=== PATIENT | female | born 1960 | race Caucasian/White ===

== ENCOUNTER 2021-12-25 13:38 | Outpatient (CLI) | payer BC, SELFPAY ==
[2021-12-25 18:23] LABS: TSH With Reflex to FT4* 0.243 uIU/mL (0.270-4.200)
[2021-12-27 14:39] LABS: Free T4 Free Thyroxine* 1.92 ng/dL (0.70-1.85)
== END 2021-12-25 13:39 | disposition home or self-care (01) ==
LOC: LONREF 13:39
PROVIDERS: PCP Family Medicine; Visit Provider Family Medicine
DX: E03.9 Hypothyroidism, unspecified (principal)
CPT/HCPCS: 84439; 84443

== ENCOUNTER 2022-02-11 07:03 | Outpatient (CLI) | payer BC, SELFPAY ==
[2022-02-11 07:31] LABS: Estimated Glomerular Filt Rate 63 ml/min
--- NOTE | 2022-02-11 08:00 | CRLHL7_ITS ---
For Patients: As a result of the Century Cures Act, medical imaging exams and procedure reports are released immediately into your electronic medical record. You may view this report before your referring provider. If you have questions, please contact your health care provider. Indication: Right lower quadrant pain Technique: Postcontrast CT abdomen and pelvis. 70 cc Isovue 370 intravenous contrast. Please note that all CT scans at this facility use dose modulation, iterative reconstruction, and/or weight-based dosing when appropriate to reduce radiation dose to as low as reasonably achievable. Comparison: None Findings: Lung bases are clear. No free air is present. Normal liver, gallbladder, spleen, pancreas, adrenal glands, kidneys and ureters. Vascular calcifications without aneurysm. Normal bladder and uterus. No adnexal mass. No bowel obstruction or free air. No free fluid or abscess. Normal appendix. Excess stool within right colon particularly in the cecum. Degenerative disc disease L4-5 and L5-S1. Impression: Normal appendix. Excess stool in the right colon compatible with constipation. No bowel obstruction or inflammatory change. Please note that all CT scans at this facility use dose modulation, iterative reconstruction, and/or weight-based dosing when appropriate to reduce radiation dose to as low as reasonably achievable. Dictated by Hollis Woodson MD @ 02/11/2022 9:23:15 AM (Electronically Signed)
== END 2022-02-11 07:04 | disposition home or self-care (01) ==
LOC: CT 07:03
PROVIDERS: PCP Family Medicine; Visit Provider Nurse Practitioner Family
DX: R10.31 Right lower quadrant pain (principal)
CPT/HCPCS: 36415; 74177; 82565; Q9967

== ENCOUNTER 2022-02-24 07:07 | Outpatient (CLI) | payer BC, SELFPAY ==
--- NOTE | 2022-02-24 07:15 | CRLHL7_ITS ---
For Patients: As a result of the Cures Act, medical imaging exams and procedure reports are released immediately into your electronic medical record. You may view this report before your referring provider. If you have questions, please contact your health care provider. INDICATION: Headaches. TECHNIQUE: Sagittal and axial T1, axial FLAIR, T2, diffusion-weighted and gadolinium enhanced sagittal axial and coronal T1 weighted images of the brain. FINDINGS: The lateral 3rd and 4th ventricles are normal in size and shape no evidence of acute ischemic infarction. No areas of diffusion restriction. No evidence of intracranial hemorrhage. There are scattered foci of FLAIR/T2 hyperintensity within the supratentorial white matter that can be seen with migraine or mild chronic microvascular ischemia but are nonspecific findings. There are no enhancing intra-axial or extra-axial lesions. The brainstem and cerebellum appear normal. The orbits sella turcica paranasal sinuses and skullbase are unremarkable. IMPRESSION: 1. No evidence of acute infarction, intracranial hemorrhage, mass or enhancing lesion. 2. Several small foci of nonspecific FLAIR/T2 hyperintensity within the supratentorial white matter consistent with mild chronic microvascular ischemia or changes related to migraine. Dictated by Alirio Donald MD @ 02/24/2022 1:15:45 PM (Electronically Signed)
== END 2022-02-24 07:08 | disposition home or self-care (01) ==
PROVIDERS: PCP Family Medicine; Visit Provider Otolaryngology
DX: R51.9 Headache, unspecified (principal); I67.82 Cerebral ischemia
CPT/HCPCS: 70553; A9575

== ENCOUNTER 2022-02-27 09:03 | Outpatient (CLI) | payer BC, SELFPAY ==
--- NOTE | 2022-02-27 09:15 | CRLHL7_ITS ---
For Patients: As a result of the Century Cures Act, medical imaging exams and procedure reports are released immediately into your electronic medical record. You may view this report before your referring provider. If you have questions, please contact your health care provider. ESOPHAGRAM CLINICAL HISTORY: Dysphagia. FINDINGS: The patient was given thin and thick barium and effervescent granules which were followed fluoroscopically. Hypopharynx appears clear. The study is suboptimal with poor distention of the esophagus. There is no hiatal hernia. No mass lesion. No fixed areas of stricture. IMPRESSION: Unremarkable, slightly limited esophagram. Total fluoro time is 0.6 seconds. Paula Ragsdale M.D. Diagnostic/Breast Radiologist [email or web address] DWIGHTP/jj jj/Dictated by: Paula Ragsdale MD @ 02/27/2022 11:20:00 AM (Electronically Signed)
== END 2022-02-27 09:04 | disposition home or self-care (01) ==
LOC: RAD 09:04
PROVIDERS: PCP Nurse Practitioner Family; Visit Provider Otolaryngology
DX: R13.10 Dysphagia, unspecified (principal)
CPT/HCPCS: 74221

== ENCOUNTER 2022-03-10 08:55 | Outpatient (CLI) | payer BC, SELFPAY ==
--- NOTE | 2022-03-10 09:00 | CRLHL7_ITS ---
For Patients: As a result of the Century Cures Act, medical imaging exams and procedure reports are released immediately into your electronic medical record. You may view this report before your referring provider. If you have questions, please contact your health care provider. INDICATION: Sensation of foreign body in throat, pain TECHNIQUE: CT of the neck with 70 ml iodinated contrast agent. Coronal and sagittal reconstructions are included. COMPARISON: Fluoroscopic esophagram 02/27/2022 FINDINGS: No focal mass, suspicious enhancing lesion, or abnormal fluid collection within the suprahyoid or infrahyoid neck. No pathologic lymphadenopathy by CT size criteria. The oral cavity, and pharyngeal mucosal spaces have a normal appearance. The laryngeal structures appear within normal limits. Grossly patent aerodigestive tract. Major salivary glands appear symmetric and unremarkable. Thyroid gland appears diminutive/poorly visualized. Vascular structures of the neck demonstrate normal contrast opacification. However, included views of the intracranial structures demonstrate possible 6 mm aneurysm at the left MCA bifurcation (series 5/). Bilateral lens implants. Clear paranasal sinuses and mastoid air cells. Cervical spondylosis, with degenerative bony ankylosis across the left C2-3 facet joint. No evidence of critical spinal canal stenosis. Multilevel foraminal narrowing, moderate to severe on the right at C3-4, left at C4-5, right at C5-6 and C6-7, and less severe elsewhere. Centrilobular and paraseptal emphysematous changes with biapical pleural parenchymal thickening. IMPRESSION: 1. No focal neck mass or suspicious enhancement. Grossly patent aerodigestive tract. No pathologic lymphadenopathy by CT size criteria. 2. 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 Consider dedicated CTA or MRA head for further characterization. Please note that all CT scans at this facility use dose modulation, iterative reconstruction, and/or weight-based dosing when appropriate to reduce radiation dose to as low as reasonably achievable. Dictated by Ynes Mclaughlin MD @ 03/10/2022 10:40:55 AM (Electronically Signed)
== END 2022-03-10 08:56 | disposition home or self-care (01) ==
LOC: CT 08:55
PROVIDERS: PCP Nurse Practitioner Family; Visit Provider Otolaryngology
DX: R13.10 Dysphagia, unspecified (principal)
CPT/HCPCS: 70491; Q9967

== ENCOUNTER 2022-03-24 07:00 | Outpatient (CLI) | payer BC, SELFPAY ==
--- NOTE | 2022-03-24 07:15 | CRLHL7_ITS ---
For Patients: As a result of the Century Cures Act, medical imaging exams and procedure reports are released immediately into your electronic medical record. You may view this report before your referring provider. If you have questions, please contact your health care provider. Indication: Headache, rule out aneurysm. Technique: 3D [id number] MR angiogram of the [id number] with 3-dimensional MIP projections were submitted. DWI and ADC map were also obtained. Comparison: CT neck 03/10/2022 Findings: The visualized first and second order intracranial vessels are unremarkable. No occlusion/filling defect or acquired arterial stenosis identified. 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 No vascular malformation seen. No evidence of diffusion restriction to suggest acute ischemia. Impression: 1. 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 Outpatient consultation with the neurointerventional radiology service can be arranged by calling [phone]. 2. No evidence of proximal arterial occlusion, aneurysm, dissection, or vascular malformation. Dictated by Hollis Montiel MD @ 03/24/2022 8:31:52 AM (Electronically Signed)
== END 2022-03-24 07:01 | disposition home or self-care (01) ==
LOC: MRI 07:00
PROVIDERS: PCP Nurse Practitioner Family; Visit Provider Otolaryngology
DX: R51.9 Headache, unspecified (principal); Q28.2 Arteriovenous malformation of cerebral vessels
CPT/HCPCS: 70544

== ENCOUNTER 2022-03-31 08:38 | Outpatient (CLI) | payer BC, SELFPAY ==
--- NOTE | 2022-03-31 09:00 | CRLHL7_ITS ---
For Patients: As a result of the Century Cures Act, medical imaging exams and procedure reports are released immediately into your electronic medical record. You may view this report before your referring provider. If you have questions, please contact your health care provider. CT ANGIOGRAM HEAD DATE: 03/31/2022 CLINICAL HISTORY: Patient with brain aneurysm. TECHNIQUE: Standard helical CT image acquisition through the intracranial circulation following intravenous administration of contrast material with bolus tracking. Multiplanar reconstructed images were performed and interpreted. COMPARISON: MRA 03/24/2022. FINDINGS: There is a 7.5mm left middle cerebral artery bifurcation aneurysm. There is no large vessel occlusion. The right internal carotid artery is normal. The right middle cerebral artery and its branches are normal. The right anterior cerebral artery and its branches are normal. The left internal carotid artery is normal. The left anterior cerebral artery and its branches are normal. The anterior communicating artery is well visualized and appears normal. The right vertebral artery and PICA are normal. The left vertebral artery and PICA are normal. The vertebral arteries are codominant. The basilar artery is patent and appears normal. The right posterior cerebral artery is normal. The left posterior cerebral artery is normal. The visualized venous structures are patent. 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 Please note that all CT scans at this facility use dose modulation, iterative reconstruction, and/or weight-based dosing when appropriate to reduce radiation dose to as low as reasonably achievable. Dictated by: Tabatha Rodriguez MD @ 03/31/2022 11:14:47 (Electronically Signed)
[2022-03-31 09:09] LABS: Creatinine* 1.1 mg/dL (0.5-1.5); Estimated Glomerular Filt Rate 56 ml/min
[2022-03-31 18:19] LABS: Free T4 Free Thyroxine* 1.21 ng/dL (0.70-1.85)
[2022-04-03 16:17] LABS: Total T3 75 ng/dL (80-200)
== END 2022-03-31 08:39 | disposition home or self-care (01) ==
LOC: CT 08:39
PROVIDERS: Family Medicine; PCP Nurse Practitioner Family; Visit Provider Radiology Diagnostic Radiology
DX: I67.1 Cerebral aneurysm, nonruptured (principal); E03.9 Hypothyroidism, unspecified
CPT/HCPCS: 36415; 70460; 82565; 84439; 84443; 84480; Q9967

== ENCOUNTER 2022-04-22 09:00 | Outpatient (CLI) | payer BC, SELFPAY ==
--- NOTE | 2022-04-22 09:15 | CRLHL7_ITS ---
For Patients: As a result of the Century Cures Act, medical imaging exams and procedure reports are released immediately into your electronic medical record. You may view this report before your referring provider. If you have questions, please contact your health care provider. BILATERAL SCREENING MAMMOGRAM WITH COMPUTER-AIDED DETECTION AND TOMOSYNTHESIS TECHNIQUE: CC and MLO views were obtained. These mammographic images have been obtained using full-field digital technique. These mammographic images were interpreted with the benefit of computer-aided detection. Breast tomosynthesis was used in this interpretation. COMPARISON FILM: 04/24/20, 06/09/17, 06/11/10. FINDINGS: The breasts are heterogeneously dense, which may obscure small masses. IMPRESSION: There is no radiographic evidence for malignancy. ASSESSMENT: BI-RADS Category 1: Negative RECOMMENDATION: Routine screening mammogram in 1 year. A lay language report of this examination will be provided to the patient. HOLLIS MCDONALD M.D. Diagnostic Radiologist [email or web address] Transcribed: 3:[address]/Dictated by: Hollis Mcdonald MD @ 04/22/2022 12:46:00 PM (Electronically Signed)
== END 2022-04-22 09:01 | disposition home or self-care (01) ==
PROVIDERS: PCP Nurse Practitioner Family; Visit Provider Nurse Practitioner Family
DX: Z12.31 Encounter for screening mammogram for malignant neoplasm of breast (principal); R92.2 Inconclusive mammogram
CPT/HCPCS: 77063; 77067

== ENCOUNTER 2022-05-22 09:37 | Outpatient (CLI) | payer BC, SELFPAY ==
[2022-05-22 15:00] LABS: Chloride* 110 mmol/L (96-114); Sodium* 141 mmol/L (135-149)
[2022-05-22 15:01] LABS: Potassium* 4.5 mmol/L (3.6-5.1)
[2022-05-22 15:03] LABS: Creatinine* 0.9 mg/dL (0.5-1.5); Estimated Glomerular Filt Rate 72 ml/min
[2022-05-22 15:04] LABS: Blood Urea Nitrogen* 13 mg/dL (7-30); Calcium* 9.5 mg/dL (8.4-10.6); Carbon Dioxide* 23 mmol/L (20-32); Glucose* 97 mg/dL (60-115)
[2022-05-22 15:39] LABS: TSH With Reflex to FT4* 0.184 uIU/mL (0.270-4.200)
[2022-05-23 19:22] LABS: Total T3 191 ng/dL (80-200)
== END 2022-05-22 09:38 | disposition home or self-care (01) ==
PROVIDERS: PCP Nurse Practitioner Family; Visit Provider Nurse Practitioner Family
DX: Z01.818 Encounter for other preprocedural examination (principal); E05.00 Thyrotoxicosis with diffuse goiter without thyrotoxic crisis or storm; I10 Essential (primary) hypertension; E78.5 Hyperlipidemia, unspecified; E03.9 Hypothyroidism, unspecified
CPT/HCPCS: 80048; 84439; 84443; 84480

== ENCOUNTER 2022-06-05 15:46 | Outpatient (CLI) | payer BC, SELFPAY ==
[2022-06-05 17:57] LABS: SARS PCR* Negative SARS-CoV-2 (Negative)
== END 2022-06-05 15:47 | disposition home or self-care (01) ==
LOC: LONREF 15:47
PROVIDERS: PCP Nurse Practitioner Family; Visit Provider Nurse Practitioner Family
DX: Z01.818 Encounter for other preprocedural examination (principal)
CPT/HCPCS: 87635

== ENCOUNTER 2022-09-02 15:18 | Outpatient (CLI) | payer BC, SELFPAY | END 2022-09-02 15:19 | disposition home or self-care (01) | PROVIDERS: PCP Nurse Practitioner Family; Visit Provider Nurse Practitioner Family | DX: R53.83 Other fatigue (principal); I10 Essential (primary) hypertension; E03.9 Hypothyroidism, unspecified | CPT/HCPCS: 82728; 84443; 84480 ==

== ENCOUNTER 2022-09-09 10:05 | Outpatient (CLI) | payer BC, SELFPAY | END 2022-09-09 10:06 | disposition home or self-care (01) | LOC: NFLDREF 09-10 18:13 | PROVIDERS: PCP Nurse Practitioner Family; Referring Provider Nurse Practitioner Family; Visit Provider Nurse Practitioner Family | DX: E03.9 Hypothyroidism, unspecified (principal) | CPT/HCPCS: 84439 ==

== ENCOUNTER 2022-11-24 09:08 | Outpatient (CLI) | payer BC, SELFPAY | END 2022-11-24 09:09 | disposition home or self-care (01) | PROVIDERS: PCP Nurse Practitioner Family; Visit Provider Family Medicine | DX: I10 Essential (primary) hypertension (principal); E78.2 Mixed hyperlipidemia; E89.0 Postprocedural hypothyroidism | CPT/HCPCS: 80048 ==

== ENCOUNTER 2023-03-09 09:03 | Outpatient (CLI) | payer BC, SELFPAY | END 2023-03-09 09:04 | disposition home or self-care (01) | LOC: NFLDREF 03-10 16:43 | PROVIDERS: PCP Nurse Practitioner Family; Referring Provider Nurse Practitioner Family; Visit Provider Family Medicine | DX: R39.9 Unspecified symptoms and signs involving the genitourinary system (principal); M48.062 Spinal stenosis, lumbar region with neurogenic claudication; M54.10 Radiculopathy, site unspecified; H92.01 Otalgia, right ear; R39.11 Hesitancy of micturition | CPT/HCPCS: 87086 ==

== ENCOUNTER 2023-03-12 07:07 | Outpatient (CLI) | payer BC, SELFPAY ==
--- NOTE | 2023-03-12 07:15 | CRLHL7_ITS ---
For Patients: As a result of the Century Cures Act, medical imaging exams and procedure reports are released immediately into your electronic medical record. You may view this report before your referring provider. If you have questions, please contact your health care provider. INDICATION : Cervical radiculopathy. TECHNIQUE : Cervical spine MRI without contrast. The following sequences were obtained: Sagittal T1, T2 weighted and STIR sequences. Axial T2-weighted and gradient sequences. COMPARISON: COMPARISONCervical spine MRI from 02/25/2021. FINDINGS: Straightening of the typical cervical lordosis. No recent compression fracture or marrow replacing process. Posterior fossa structures are normal. Cervical cord signal is normal. No extraspinal soft tissue abnormalities. Discs/Endplates: At C6-7, moderately advanced disc height loss and disc desiccation. At C5-6, mild disc height loss and disc desiccation. Minimal disc degeneration elsewhere. Findings at individual levels as follows: Craniocervical junction: Alignment is maintained. C2-C3: High-grade left facet arthrosis with bony fusion along the facet joint. Mild left neural foraminal stenosis. No right neural foraminal stenosis or spinal canal stenosis. C3-C4: Shallow disc osteophyte complex, asymmetric to the right flexes the thecal sac and contributes to mild right-sided spinal canal stenosis. Contiguous right uncovertebral arthrosis combine with right facet arthrosis results in moderately advanced right neural foraminal stenosis with impingement of the exiting right C4 nerve root. Left uncovertebral and facet arthrosis contributes to mild left neural foraminal stenosis. C4-C5: Shallow disc osteophyte complex flattens the thecal sac without spinal canal stenosis. Bilateral uncovertebral arthrosis and high-grade left facet arthrosis with mild right and advanced left neural foraminal stenosis. Impingement of the exiting left C5 nerve root. C5-C6: A right central protrusion/osteophyte minimally flattens the right ventral cord with mild right-sided spinal canal stenosis. Bilateral uncovertebral and facet arthrosis contributes to mild left and moderately advanced right neural foraminal stenosis with impingement of the exiting right C6 nerve root. C6-C7: A right dorsal lateral disc osteophyte flattens the thecal sac and contributes to mild right-sided spinal canal stenosis. Bilateral uncovertebral and facet arthrosis contributes to moderate left and advanced right neural foraminal stenosis with impingement of the exiting right C7 nerve root. C7-T1: Trace anterolisthesis. Right-sided facet arthrosis. Mild right neural foraminal stenosis. No left neural foraminal stenosis or spinal canal stenosis. T1-2: No spinal canal or neural foraminal stenosis. IMPRESSION: 1. No significant progression of multilevel cervical spondylosis when compared to MRI from 02/25/2021. 2. High-grade neural foraminal stenosis at C3-4 on the right, C4-5 on the left, C5-6 on the right, and C6-7 on the right with impingement of exiting nerve roots at these levels. Mild to moderate neural foraminal stenosis elsewhere. 3. No high-grade spinal canal stenosis or significant extrinsic cord deformity at any cervical level. Cervical cord signal is normal. Dictated by Asael David MD @ 03/13/2023 1:31:35 PM (Electronically Signed)
== END 2023-03-12 07:08 | disposition home or self-care (01) ==
LOC: MRI 07:08
PROVIDERS: PCP Family Medicine; Visit Provider Physical Medicine & Rehabilitation Pain Medicine
DX: M54.12 Radiculopathy, cervical region (principal); M47.812 Spondylosis without myelopathy or radiculopathy, cervical region; M48.02 Spinal stenosis, cervical region
CPT/HCPCS: 72141

== ENCOUNTER 2024-02-23 08:26 | Outpatient (CLI) | payer BC, OTHER, SELFPAY ==
--- OUTSIDE RECORDS SUMMARY | 2024-02-23 08:32 | XMS_ITS | Referral Summary ---
Author Organization [facility] Address [facility] [place] [address] Care Team Providers Care Wrapper Leaf Inspector Name Role Phone Vj Dos Santos MD Unavailable [phone] Vj Dos Santos MD Primary Care Provider [phone] Allergies Active Allergy Reactions Criticality Noted Date Comments Hydrocodone-Acetaminoph en 08/27/2009 PN: LW Reaction: hallucinations Medications Medication Sig Dispensed Refills Start Date End Date Status mometasone-formoterol (DULERA) 100-5 MCG/ACT inhaler Inhale 2 puffs into the lungs daily Active tiotropium (SPIRIVA HANDIHALER) 18 MCG inhaled capsule Inhale 18 mcg into the lungs daily Active cholecalciferol (VITAMIN D3) 125 mcg (5000 units) capsule Take 125 mcg by mouth daily Active levothyroxine (SYNTHROID/LEVOTHROID) 112 MCG tabletIndications:Grav es disease,S/P total thyroidectomy Take 1 tablet (112 mcg) by mouth daily 30 tablet 1 05/30/2020 Active traMADol (ULTRAM) 50 MG tabletIndications:Grav es disease,S/P total thyroidectomy Take 1-2 tablets (50-100 mg) by mouth every 6 hours as needed for moderate pain 10 tablet 05/29/2020 Active calcium carbonate-vitamin D (OSCAL W/D) 500-200 MG-UNIT tabletIndications:Grav es disease,S/P total thyroidectomy Take 2 tablets by mouth 3 times daily (with meals) 90 tablet 05/29/2020 Active Active Problems Problem Noted Date Diagnosed Date Graves disease 05/02/2020 Overview: Added automatically from request for surgery [id number] Social History Tobacco Use Types Packs/Day Years Used Date Smoking Tobacco: Every Day Cigarettes Smokeless Tobacco: Never Tobacco Cessation:Counseling Given: Yes Alcohol Use Standard Drinks/Week Comments Yes 0 (1 standard drink = 0.6 oz pur e alcohol) very seldom Adolescent Education Answer Date Record ed Getting School Help Needed Not on file 02/22 Sex and Gender Information Value Date Recorded Sex Assigned at Not on file Gender Identity Not on file Sexual Orientation Not on file Last Filed Vital Signs Vital Sign Reading Time Taken Comments Blood Pressure 129/61 05/29/2020 7:42 AM [employer]CR[employer]E [employer] Pulse 59 05/29/2020 7:42 AM [employer] Temperature 35.9 ??C (96.6 ??F) 05/29/2020 7:42 AM CS T Respiratory Rate 16 05/29/2020 7:42 AM [employer] Oxygen Saturation 96% 05/29/2020 7:42 AM [employer]CR[employer] Inhaled Oxygen Concentration - - Weight 72.4 kg (159 lb 11.2 oz) 05/28/2020 8:31 AM [employer]CR[employer] Height 182.9 cm (6') 05/28/2020 8:31 AM [employer] Body Mass Index 21.66 05/28/2020 8:31 AM [employer]CR[employer] Plan of Treatment Not on file Advance Directives For more information, please contact: [phone] * Full Code (Latest Code Status on File) Date Activated Date Inactivated Comments 05/28/2020 5:12 PM 05/29/2020 12:51 PM All basic and advanced life-sustaining interventions are performed as appropriate Post-op Question Answer Comments Code status determined by: Other (please documen t) Care Teams Wrapper Leaf Inspector Relationship Specialty Start Date End Date Vj Dos Santos MD PCP - General Family Medicine 04/12/20 Vj Dos Santos MD Family Practice 07/14/14
--- OUTSIDE RECORDS SUMMARY | 2024-02-23 08:32 | XMS_ITS | Clinical Summary ---
Author Organization [facility] Address [address] [place] [address]. [place] [address] Care Team Providers Care Mathematics Academic Chair Name Role Phone Vj Dos Santos MD Unavailable [phone] Vj Dos Santos MD Primary Care Provider [phone] Allergies Active Allergy Reactions Criticality Noted Date [...] Overview: Added automatically from request for surgery [id number] Social History Tobacco Use Types Packs/Day Years [...] Comments Blood Pressure 129/61 05/29/2020 7:42 AM KEYPUNCHER Pulse 59 05/29/2020 7:42 AM KEYPUNCHER Temperature 35.9 ??C (96.6 ??F) 05/29/2020 7:42 AM CS T Respiratory Rate 16 05/29/2020 7:42 AM KEYPUNCHER Oxygen Saturation 96% 05/29/2020 7:42 AM KEYPUNCHER Inhaled Oxygen Concentration - - Weight 72.4 kg (159 lb 11.2 oz) 05/28/2020 8:31 AM KEYPUNCHER Height 182.9 cm (6') 05/28/2020 8:31 AM KEYPUNCHER Body Mass Index 21.66 05/28/2020 8:31 AM KEYPUNCHER Plan of Treatment Not on file Advance Directives For more information, please contact: [phone] * Full Code (Latest Code Status on File) Date Activated Date Inactivated Comments 05/28/2020 5:12 PM 05/29/2020 12:51 PM All basic and advanced life-sustaining interventions are performed as appropriate Post-op Question Answer Comments Code status determined by: Other (please documen t) Care Teams Mathematics Academic Chair Relationship Specialty Start Date End Date Vj Dos Santos MD PCP - General Family Medicine 04/12/20 Vj Dos Santos MD Family Practice 07/14/14
--- OUTSIDE RECORDS SUMMARY | 2024-02-23 08:32 | XMS_ITS | Clinical Summary ---
Author Organization [facility] Address [place], [place] [address] Care Team Providers Care Power Plant Operator Name Role Phone Jazmyne Ray HOTEL SUPPLIES SALESPERSON Primary Care Provider [phone] Allergies No known active allergies Medications Medication Sig Dispensed Refills Start Date End Date Status Ventolin HFA 90 mcg/actuation inhaler Inhale 1 Puff by mouth every 4 hours if needed. 03/20/2022 Active amLODIPine (NORVASC) 2.5 mg tablet Take 5 mg by mouth once daily. 05/01/2022 Active buPROPion (WELLBUTRIN SR) 100 mg Sustained-Release tablet Take 200 mg by mouth once daily. 05/01/2022 Active eszopiclone (LUNESTA) 2 mg tablet Take 2-4 mg by mouth at bedtime. 05/01/2022 Active levothyroxine (SYNTHROID) 88 mcg tablet Take 88 mcg by mouth once daily. 03/25/2022 Active liothyronine (CYTOMEL) 5 mcg tablet Take 5 mcg by mouth once daily. 05/01/2022 Active montelukast (SINGULAIR) 10 mg tablet Take 10 mg by mouth once daily. 03/25/2022 Active Dulera 200-5 mcg/actuation inhaler Inhale 2 Puffs by mouth once daily. 06/09/2022 Active nicotine 21 mg/24 hr (NICODERM; HABITROL) 21 mg/24 hr patch Apply 1 Patch on dry, clean, hairless skin once daily. 05/01/2022 Active ondansetron (ZOFRAN) 4 mg tablet Take 4 mg by mouth every 8 hours if needed. 03/31/2022 Active tiotropium (spiriva) 18 mcg inhalation capsule Inhale 18 mcg by mouth once daily. 12/06/2021 Active simvastatin (ZOCOR) 10 mg tablet Take 10 mg by mouth once daily. 05/01/2022 Active aspirin (ECOTRIN) 81 mg enteric coated tablet Take 81 mg by mouth once daily. Active acetaminophen (TYLENOL EXTRA STRGTH) 500 mg tablet Take 1-2 Tablets (500-1,000 mg) by mouth every 6 hours if needed for Headache, Pain or Temp > (Specify) (1st choice for mild pain, 0-3/10). Max acetaminophen dose: 4000mg in 24 hrs. 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 (06/10/2022): Added automatically from request for surgery [id number] Toxic diffuse goiter without mention of thyrotoxic crisis or storm Asthma 10/29/2002 Overview (06/10/2022): Asthma NOS Tobacco use disorder 10/29/2002 Overview (06/10/2022): Tobacco Abuse Encounters Date Type Department Care Team Description 12/02/2023 Transcribe Orders [facility] [address] [place] [address] Lai Lehman MD from Last 3 Months Immunizations Name Administration Dates Next Due Influenza A (H1N1), Inactivated 04/24/2009 Influenza A (H1N1), Inactiva jarret (Age >=3 Years) 05/24/2009 Influenza RIV4 (Age 18+ Year s) PRESERV FREE 04/15/2021 Influenza Virus, Unspecified 04/01/2012, 05/07/2010,05/08/2009,2007,03/29/2007,03/09/2006,03/07/2005,1 ,03/29/2003,03/09/2001 Influenza, IIV3 (Age 6-35 mos) 4,03/29/2013,03/16/2012,2011 Influenza, IIV3 (Age >=3 years) 04/01/2012,02/26 Influenza, IIV4 02/21/2020, 9,05/24/2009,2008 MMR 07/27/1990 Pneumococcal Poly,23-Valent (Pneumovax) 09/06/2002 Td (Age >=7 Years) 09/06/2002 Tdap 01/16/2014 Social History Tobacco Use Types Packs/Day Years Used Date Smoking Tobacco: Every Day Cigarettes Tobacco Cessation:Ready to Q uit: Yes; Counseling Given: Yes Comments:TIP 06/11/22 Alcohol Use Standard Drinks/Week Comments No 0 (1 standard drink = 0.6 oz pur e alcohol) Social Connections Answer Date Recorded Frequency of Communication with Friends and Fami ly Not on file 09/02/2022 Sex and Gender Information Value Date Recorded Sex Assigned at Not on file Gender Identity Not on file Sexual Orientation Not on file Obstetrics History Last Filed Vital Signs Vital Sign Reading Time Taken Comments Blood Pressure 118/69 12/01/2022 1:30 PM CDT Pulse 58 12/01/2022 1:30 PM CDT Temperature 36.2 ??C (97.2 ??F) 12/01/2022 10:33 AM C DT Respiratory Rate 14 12/01/2022 1:30 PM CDT Oxygen Saturation 97% 12/01/2022 1:30 PM CDT Inhaled Oxygen Concentration - - Weight 68.9 kg (152 lb) 12/01/2022 10:33 AM CDT Height 180.3 cm (5' 11) 12/01/2022 10:33 AM CDT Body Mass Index 21.2 12/01/2022 10:33 AM CDT Plan of Treatment Health Maintenance Due Date Last Done Comments Depression screening for age 12+ 1970 HIV for age 15-65 1973 BMI (ht and wt on same day) for age 18+ 1976 Hepatitis C screening for ag e 18-79 1976 Colonoscopy through age 75 12/08/2003 Lipids for age 45-75 12/08/2003 Mammogram for age 45-75 12/08/2003 Zoster (shingles) series for age 50+ (1 of 2) 2008 Pap test for age 21-65 05/05/2020 05/05/2017, 2016 DEXA/DXA scan for age 65+ 12/08/2023 Pneumococcal series for age 65+ (2 of 2 - PCV) 12/08/2023 09/06/2002 Tetanus booster 01/17/2024 01/16/2014, 09/06/2002 COVID-19 vaccine series ( season) 2024 05/23/2021, 08/15/2020, 07/18/2020 Influenza for age 65+ 01/24/2024 04/15/2021 , 02/21/2020, 03/10/2019, Additional history exists Tdap Completed 01/16/2014 Procedures Procedure Name Priority Date/Time Associated Diagnosis Comments J2EE CONSULTANT THIN PREP PAP SCREEN IMAGED Routine 05/05/2017 8:45 AM MECHANICAL ASSEMBLY TECHNICIAN from Last 3 Months or Most Recently Relevant to Health Maintenance Results * J2EE CONSULTANT THIN PREP PAP SCREEN IMAGED (05/05/2017 8:45 AM MECHANICAL ASSEMBLY TECHNICIAN) Case Report Gynecologic Cytology Report ? Case: [id number] ? Authorizing Provider: ??Mariela Palencia MD ? Collected: ? 05/05/2017 0845 ? First Screen: ?Ashleigh Can ?Received: ?05/07/2017 1137 ? Specimen: ?J2EE CONSULTANT ThinPrep Vial Screening, Cervical/Vaginal ? 05/19/2017 2:57 PM MECHANICAL ASSEMBLY TECHNICIAN [facility] [employer] [facility] INTERPRETATION/ RESULT NEGATIVE FOR INTRAEPITHELIAL LESION OR MALIGNANCY (NIL) (none) 05/19/2017 2:57 PM [facility] IMEN ADEQUACY Satisfactory for evaluation Endocervical component present 05/19/2017 2:57 PM MECHANICAL ASSEMBLY TECHNICIAN [facility] [employer] [facility] HPV REQUEST HPV and PAP 05/19/2017 2:57 PM MECHANICAL ASSEMBLY TECHNICIAN [facility] [employer] [facility] Date of LMP 05/19/2017 2:57 PM [facility] Comment:> 5 years Last Pap Date 09/06/2009 05/19/2017 2:57 PM MECHANICAL ASSEMBLY TECHNICIAN [facility] Last Pap Result NIL 7 2:57 PM MECHANICAL ASSEMBLY TECHNICIAN [facility] Menstrual Status 05/19/2017 2:57 PM MECHANICAL ASSEMBLY TECHNICIAN [facility] Comment:menopause Automated Review Successful 05/19/2017 2:57 PM MECHANICAL ASSEMBLY TECHNICIAN [facility] Comment:Specimen processed s uccessfully by automated bridge design engineer device, ThinPrep Imaging System, [employer] ANCILLARY TESTING J2EE CONSULTANT HPV Ordered, Please see separate report 05/19/2017 2:57 PM MECHANICAL ASSEMBLY TECHNICIAN [facility] Note The pap test is a screening technique, not a diagnostic procedure. ??It is used primarily to screen for squamous cancers and precursor lesions. ??Published studies have shown that it is subject to both false negative and false positive results. ??The pap test should not be used as the sole means to diagnose or exclude pre-malignant and malignant lesions. Interpreted at [facility] ([facility], [facility], [facility], [facility], [facility], [facility], [facility]) 05/19/2017 2:57 PM MECHANICAL ASSEMBLY TECHNICIAN [facility] ENTRAL LABORATORY Other (Cervical/Vagina l) 05/05/2017 8:45 AM MECHANICAL ASSEMBLY TECHNICIAN 05/07/2017 11:37 AM MECHANICAL ASSEMBLY TECHNICIAN Mariela Palencia MD PATHOLOGY/CYTOLOGY [facility] [address] [place] [address], from Last 3 Months or Most Recently Relevant to Health Maintenance Advance Directives * Full Code (Latest Code Status on File) Date Activated Date Inactivated Comments 06/10/2022 8:26 AM 06/11/2022 1:26 PM Question Answer Comments Code Status Discussion: Reviewed Preferences Care Teams Power Plant Operator Relationship Specialty Start Date End Date Jazmyne Ray HOTEL SUPPLIES SALESPERSON PCP - General Nurse Practitioner 05/30/22
--- OUTSIDE RECORDS SUMMARY | 2024-02-23 08:32 | XMS_ITS | Clinical Summary ---
Author Organization [facility] Address [address] [place] [address] Care Team Providers Care Scruff Worker Name Role Phone Richelle Alfaro MD Primary Care Provider [phone] Source Comments You are receiving this document as you are listed as the primary care provider,follow-up provider, or the patient has been referred to you for consultation.This is in compliance with the Medicare and[facility] EHR Incentive Program,which states Providers who transition their patient to another setting of careor provider of care or refers their patient to another provider of care shouldprovide summary care record for each transition of care or referral. [facility] Allergies Active Allergy Reactions Criticality Noted Date Comments Hydrocodone-Acetaminoph en 08/27/2009 PN: LW Reaction: hallucinations Medications Medication Sig Dispensed Refills Start Date End Date Status ATENolol (AKA TENORMIN) 25 MG tabletIndications :Toxic diffuse goiter without mention of thyrotoxic crisis or storm (HRC) Take 2 tablets by mouth daily (every 24 hours). 180 tablet 0 03/25/2012 Active Additional Information Patient not taking.Reported on 04/30/2022 methimazole (AKA TAPAZOLE) 10 MG tabletIndications :Toxic diffuse goiter without mention of thyrotoxic crisis or storm (HRC) Take 2 tablets by mouth daily (every 24 hours). 180 tablet 1 03/25/2012 Active ipratropium-ALBUt joseline (COMBIVENT) 18-103 MCG/ACT inhaler Inhale 2 puffs every 6 hours as needed. 3 Inhaler 0 09/07/2011 Active Additional Information Patient not taking.Reported on 03/26/2022 ipratropium-ALBUt joseline (DUONEB) 0.5-2.5 (3) MG/3ML nebulizer solution Take 3 mLs by nebulization every 4 hours as needed. 180 mL 1 09/07/2011 Active SPIRIVA HANDIHALER 18 MCG inhaler Inhale 1 Capsule (18 mcg) daily. 12/06/2021 Active simvastatin (ZOCOR) 10 MG tablet Take 1 Tablet (10 mg) by mouth daily at bedtime. 01/02/2022 Active ondansetron (ZOFRAN) 4 MG tablet Take 1 Tablet (4 mg) by mouth every 8 hours as needed. 02/06/2022 Active montelukast (SINGULAIR) 10 MG tablet Take 1 Tablet (10 mg) by mouth daily. 01/02/2022 Active DULERA 200-5 MCG/ACT inhaler Inhale 2 Puffs two times a day. 01/29/2022 Active levothyroxine (SYNTHROID) 88 MCG tablet Take 1 Tablet (88 mcg) by mouth daily. 12/30/2021 Active eszopiclone (LUNESTA) 2 MG tablet Take 1 Tablet (2 mg) by mouth at bedtime as needed. 01/29/2022 Active cholecalciferol (VITAMIN D3) 125 MCG (5000 UT) capsule Take 125 mcg by mouth. Active cefdinir (OMNICEF) 300 MG capsule Take by mouth. 11/11/2021 Active benzonatate (TESSALON) 100 MG capsule Take 100 mg by mouth three times a day. 11/27/2021 Active azithromycin (ZITHROMAX) 250 MG tablet Take 250 mg by mouth. 11/04/2021 Active VENTOLIN HFA 108 (90 Base) MCG/ACT inhaler Inhale. 12/05/2021 Active amLODIPine (NORVASC) 2.5 MG tablet Take 1 Tablet (2.5 mg) by mouth daily. 05/01/2022 Active ASPIRIN 81 OR Active pregabalin (LYRICA) 75 MG capsule Take 1 Capsule (75 mg) by mouth two times a day. 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 (01/14/2017): Toxic diffuse goiter without mention of thyrotoxic crisis or storm Tobacco use disorder 10/29/2002 Overview (01/14/2017): Tobacco Abuse Asthma 10/29/2002 Overview (01/14/2017): Asthma NOS Lumbago 10/29/2002 Overview (01/14/2017): Pain Low Back Immunizations Name Administration Dates Next Due Flu Vac Preserv Free (3+yrs) 04/01/2012, 05/07/2010,05/08/2009,03/08/20 08,03/29/2007,03/09/2006,03/07/2005,03/08 H1n1 Miv Sanofi 3+ Yr (Injected) 04/24/2009 Influenza, Unspecified Formulation 03/29/2003, PPSV23 (Pneumovax) 09/06/2002 Td 09/06/2002 Social History Tobacco Use Types Packs/Day Years Used Date Smoking Tobacco: Every Day Cigarettes 1 30 Smokeless Tobacco: Never Comments:Smoking History Pac ks/day: Alcohol Use Standard Drinks/Week Comments No 0 (1 standard drink = 0.6 oz pure alcohol) Alcoholic Drinks/day: Amount:1-2 drinks; Freq:=< Monthly; Sex and Gender Information Value Date Recorded Sex Assigned at Not on file Gender Identity Not on file Sexual Orientation Not on file Last Filed Vital Signs Vital Sign Reading Time Taken Comments Blood Pressure 113/68 05/15/2022 10:53 AM UNIVERSAL WINDING MACHINE OPERATOR Pulse 66 05/15/2022 10:53 AM UNIVERSAL WINDING MACHINE OPERATOR Temperature 36.2 ??C (97.2 ??F) 05/15/2022 10:[address] Respiratory Rate 16 05/15/2022 10:53 AM UNIVERSAL WINDING MACHINE OPERATOR Oxygen Saturation 99% 05/15/2022 10:53 AM UNIVERSAL WINDING MACHINE OPERATOR Inhaled Oxygen Concentration - - Weight 65.8 kg (145 lb) 07/01/2022 11:57 AM UNIVERSAL WINDING MACHINE OPERATOR Height 177.8 cm (5' 10) 07/01/2022 11:57 AM UNIVERSAL WINDING MACHINE OPERATOR Body Mass Index 20.81 07/01/2022 11:57 AM UNIVERSAL WINDING MACHINE OPERATOR Plan of Treatment Health Maintenance Due Date Last Done Comments Colon Cancer Screening Plan Due 1960 Hep C Screening (Preventive Services) 1960 Adult Preventive Visit 1976 Pneumococcal 65+ Yrs (2 - PCV) 09/07/2003 09/06/2002 Mammogram 04/11/2009 04/11/2008 Cervical Cancer Screening Due 06/27/2009 06/26/2009, 04/03/2008, 03/09/2006, Additional history exists Cholesterol 06/26/2014 06/26/2009, 03/25, 03/17/2006, Additional history exists Zoster/Shingles (2 of 2) 04/21/2023 02/24/2023 DTaP/Tdap/Td (2 - Tdap) 01/17/2024 01/16/2014, 09/06 COVID-19 Vaccine (4 - season) 2024 05/23/2021, 08/15/2020, 07/18/2020 Influenza (#1) 2024 04/15/2021, 03/26, 02/21/2020, Additional history exists RSV (1 - 1-dose 75+ series) 2033 HepA Aged Out No longer eligi ble based on patient's age to complete this topic HepB Aged Out No longer eligi ble based on patient's age to complete this topic Hib Aged Out No longer eligi ble based on patient's age to complete this topic IPV (Polio) Aged Out No longer eligi ble based on patient's age to complete this topic MCV4 Aged Out No longer eligi ble based on patient's age to complete this topic Procedures Procedure Name Priority Date/Time Associated Diagnosis Comments LIPID PANEL & DIRECT LDL (IF NEEDED) Routine 06/26/2009 10:20 AM UNIVERSAL WINDING MACHINE OPERATOR ANATOMICAL PATH LIQUID BASED Routine 06/26/2009 7:32 AM UNIVERSAL WINDING MACHINE OPERATOR MM MAMMOGRAM SCREENING BILAT W CAD Routine 04/11/2008 11:48 AM UNIVERSAL WINDING MACHINE OPERATOR from Last 3 Months or Most Recently Relevant to Health Maintenance Results * (ABNORMAL) Lipid Panel and Direct LDL(If Needed) (06/26/2009 10:20 AM UNIVERSAL WINDING MACHINE OPERATOR) Hours Fasting 12.0 Hours HP CONVERSION Cholesterol/HDL Ratio Screen 4.2 No normal range HP CONVERSION Cholesterol 208(H) <200 mg/dL HP CONVERSION HDL Cholesterol 49 >40 mg/dL HP CONVERSION Triglycerides 91 0 - 149 mg/dL HP CONVERSION LDL Calculated 141(H) 0 - 130 mg/dL HP CONVERSION Comment: 06/26/2009 10:2 0 AM UNIVERSAL WINDING MACHINE OPERATOR Richelle Alfaro MD LAB_1 Performing Organization Address [facility] Co de Phone Number HP CONVERSION * Pap Smear (06/26/2009 7:32 AM UNIVERSAL WINDING MACHINE OPERATOR) PAP Smear Liquid Based SEE TEXT No normal range HP CONVERSION Comment: Patient: CYNDI PENA ? CERVICAL CYTOLOGY REPORT Pathology # ??[id number] ?Date Obtained: ? Date Received: CYTOLOGIC IMPRESSION: Negative for intraepithelial lesion or malignancy. Verified 06/28/09 by: ??MB ? (electronic signature) ? ADDITIONAL DATA LMP: CLINICAL HIST LIQUID BASED PAP CERVICAL SPECIMEN ADEQUACY: ?? Satisfactory. ENDOCERVICAL CELLS: ??Absent; patient is post-menopausal. 06/26/2009 7:32 AM UNIVERSAL WINDING MACHINE OPERATOR Richelle Alfaro MD LAB_1 HP CONVERSION * MM Mammogram Screening Bilat W CAD (04/11/2008 11:48 AM UNIVERSAL WINDING MACHINE OPERATOR) Anatomical Region Laterality Modality Breast Bilateral Mammography Impressions 04/14/2008 2:44 PM UNIVERSAL WINDING MACHINE OPERATOR : BILATERAL BREASTS Negative, no evidence of malignancy. Normal interval follow-up is recommended in 12 months. OVERALL ASSESSMENT - CATEGORY 1 - NEGATIVE END OF IMPRESSION Dictating BILLY CONTRERAS RADIOLOGIST Narrative 04/14/2008 2:44 PM UNIVERSAL WINDING MACHINE OPERATOR Comparison is made to films from 03/23/2006 (bilateral). ??There is no significant interval change. Bilateral Breast Findings: The breasts are heterogeneously dense (51% - 75% fibroglandular). This may lower the sensitivity of mammography. ??No significant masses, calcifications or other abnormalities are seen. Procedure Note Billy Boles - 07/24/2016 Comparison is made to films from 03/23/2006 (bilateral). There is no significant interval change. Bilateral Breast Findings: The breasts are heterogeneously dense (51% - 75% fibroglandular). This may lower the sensitivity of mammography. No significant masses, calcifications or other abnormalities are seen. IMPRESSION : BILATERAL BREASTS Negative, no evidence of malignancy. Normal interval follow-up is recommended in 12 months. OVERALL ASSESSMENT - CATEGORY 1 - NEGATIVE END OF IMPRESSION Dictating BILLY CONTRERAS RADIOLOGIST Richelle Alfaro MD RAD [facility] from Last 3 Months or Most Recently Relevant to Health Maintenance Care Teams Scruff Worker Relationship Specialty Start Date End Date Richelle Alfaro MD [address] [place] [address] PCP - General 08/26/10
== END 2024-02-23 08:27 | disposition home or self-care (01) ==
PROVIDERS: PCP Family Medicine; Visit Provider Family Medicine
DX: Z00.00 Encounter for general adult medical examination without abnormal findings (principal); I10 Essential (primary) hypertension; E78.5 Hyperlipidemia, unspecified; E03.9 Hypothyroidism, unspecified; E89.0 Postprocedural hypothyroidism; Z13.21 Encounter for screening for nutritional disorder
CPT/HCPCS: 80048; 80061; 82607; 84439; 84443; 84480

== ENCOUNTER 2024-11-08 12:08 | Outpatient (CLI) | payer MEDICARE, OTHER, SELFPAY ==
[2024-11-08 13:31] VITALS: BP 120/56; PULSE 76; RESP 18
--- NOTE | 2024-11-08 13:58 | P.STN_ITS ---
Stress Test Note Date Date of test: 11/08/24 Providers Primary care provider: Anibal Dos Santos Stress test physician: Chan Butler Stress Test Note Stress test ordered: Stress Echo Indication for test: Dyspnea on exertion Stress test medicine: None Results discussion: Patient presents for the above test after discussion the risks benefits and side effects she would like to proceed, cardiac stress test medical history form is reviewed. Pretest EKG shows normal sinus rhythm. Occasional PACs. Ventricular rate is 58, and blood pressure 134 on 80. Following normal [place] protocol patient is exercised for a total of 5 minutes 2 seconds achieved a metabolic equivalent of 7.0 Mets, her maximum heart rate was 133 which is 100% of the maximum. Maximum blood pressure was 164 and 100, test is terminated because of fatigue, back pain. During this test there is no appreciable ST wave changes suggestive of ischemia, there were no dysrhythmias, conditioning was felt to be poor Impression: Negative electrographic portion of stress echo, patient did develop some sh ortness of breath, along with back pain, Follow up suggested: Await echo imaging, clinical correlation with this will be needed, preliminary via the tech was this was negative, conditioning was very poor. Question of pulmonary component. Follow-up with primary care suggested. Patient left this testing facility in good condition
== END 2024-11-08 13:32 | disposition home or self-care (01) ==
LOC: STRESS 12:11
PROVIDERS: PCP Family Medicine; Visit Provider Family Medicine
DX: R06.09 Other forms of dyspnea (principal); I34.0 Nonrheumatic mitral (valve) insufficiency
CPT/HCPCS: 93016; 93325; 93351

== ENCOUNTER 2025-03-06 10:54 | Outpatient (CLI) | payer MEDICARE, OTHER, SELFPAY ==
[2025-03-06 11:38] LABS: Hematocrit* 44.9 % (33.0-51.0); Hemoglobin* 14.6 gm/dL (12.0-16.0); Immature Granulocytes Abs Auto 0.02 K/uL (0.00-0.30); Immature Granulocytes Pct Auto 0.2 %; Lymphocytes Absolute Auto 1.71 K/uL (0.90-2.90); Mean Corpuscular HGB Conc 33 gm/dL (32-36); Mean Corpuscular Hemoglobin 32 pg (26-34); Mean Corpuscular Volume 98 fL (80-100); RDW Coefficient of Variation % 11.8 % (11.5-15.5); Red Blood Count* 4.59 m/uL (4.00-5.20); White Blood Count* 8.28 K/uL (4.50-11.00)
[2025-03-06 11:39] LABS: Slide Review Reflex No
[2025-03-06 21:51] LABS: Cholesterol* 217 mg/dL (90-199); HDL Cholesterol* 68 mg/dL (>=50); Triglycerides* 125 mg/dL (40-149)
[2025-03-06 22:12] LABS: Free T4 Free Thyroxine* 1.93 ng/dL (0.70-1.85)
== END 2025-03-06 10:55 | disposition home or self-care (01) ==
PROVIDERS: PCP Family Medicine; Visit Provider Family Medicine
DX: E89.0 Postprocedural hypothyroidism (principal); E78.2 Mixed hyperlipidemia; R61 Generalized hyperhidrosis
CPT/HCPCS: 80061; 84439; 84443; 84480; 85025